=== PATIENT | male | born 1970 | race Two or more races ===

== ENCOUNTER 2022-04-25 10:05 | Inpatient (IN) | payer MEDICAID, OTHER ==
[~2022-04-25] VITALS: Ht 180.3 cm; Wt 107.5 kg
[2022-04-25] MEDS ORDERED: SODIUM CHLORIDE 0.9% 500 ML IV ONE (10:45)
[2022-04-25 11:47] LABS: Basophils # (auto) 0.1 10 ^3/uL (0-0.2); Basophils % (auto) 0.7 % (0.0-2.0); Eosinophils # (auto) 0.1 10 ^3/uL (0-0.8); Eosinophils % (auto) 1.3 % (0.0-7.0); Hematocrit 43.4 % (41.0-53.0); Hemoglobin 14.2 g/dL (13.5-17.5); Lymphocytes # (auto) 1.4 10 ^3/uL (0.4-5.4); Lymphocytes % (auto) 13.3 % (10.0-50.0); Mean Corpuscular Hemoglobin 30.6 pg (28.0-32.0); Mean Corpuscular Hgb Conc. 32.7 g/dL (32.0-36.0); Mean Corpuscular Volume 93.7 fL (80.0-100.0); Monocytes % (auto) 9.6 % (0.0-12.0); Neutrophils # (auto) 7.9 10 ^3/uL (1.6-8.6); Neutrophils % (auto) 75.1 % (37.0-80.0); Nucleated Red Blood Cells % 0.1 %; Red Blood Cells 4.64 10^6/uL (4.5-5.90); Red Cell Distribution Width 14.6 % (11.8-14.3); White Blood Cell 10.5 10^3/uL (4.4-10.8)
[2022-04-25 12:06] LABS: INR 1.05 (0.9-1.15); Partial Thromboplastin Time 27.6 sec (23.6-33.0)
[2022-04-25 12:11] LABS: Potassium 3.9 mmol/L (3.5-5.1)
[2022-04-25 12:15] LABS: Albumin 2.8 g/dL (3.4-5.0); BUN/Creatinine Ratio 12.4; Calcium 8.1 mg/dL (8.5-10.1)
[2022-04-25 12:22] LABS: Urine Bacteria NONE SEEN /hpf (None Seen); Urine Blood Negative /uL (Negative); Urine Budding Yeast MODERATE /hpf (None Seen); Urine Specific Gravity 1.034 (1.001-1.035); Urine WBC 14 /hpf (0 - 3)
[2022-04-25 12:42] LABS: Bilirubin, Total 0.4 mg/dL (0.2-1.0); Total Protein 7.4 g/dL (6.4-8.2)
[2022-04-25] MEDS ORDERED: CLINDAMYCIN 600MG IV 50 ML IV ONE (13:45)
[2022-04-25] MEDS ORDERED: ONDANSETRON HCL 4 MG/2 ML VIAL IV PRN (16:00)
[2022-04-25] MEDS ORDERED: SODIUM CHLORIDE 0.9% 1,000 ML IV ONE (16:00)
[2022-04-25] MEDS ORDERED: cefTRIAXone 1GM/50ML D5W 50 ML IV ONE (16:00)
[2022-04-25] MEDS ORDERED: INSUINJ37 SC (16:12)
[2022-04-25] MEDS ORDERED: DEXTROSE (50%) 50ML SYRG IV PRN (16:15)
[2022-04-25] MEDS ORDERED: hydrALAZINE HCL 20 MG/ML VL IV PRN (16:15)
[2022-04-25 16:36] LABS: Cholesterol 95 mg/dL (< 200); HDL Cholesterol 37 mg/dL (40-59); LDL Cholesterol 53 mg/dL (< 100); Triglycerides 107 mg/dL (< 150)
[2022-04-25] MEDS: ACCU-CHEK COMFORT CURVE STRIP VI SCH ×2 (18:23→22:18)
[2022-04-25] MEDS: InsuLIN REG 1unit/0.01ml Soln (100units/ml) SC SCH ×2 (18:24→22:18)
[2022-04-25 18:43] VITALS: BP 171/113
[2022-04-25 19:04] VITALS: BP 160/98
[2022-04-25 20:08] VITALS: BP 130/68
[2022-04-25 22:06] VITALS: BP 141/87
[2022-04-25] MEDS: CLINDAMYCIN 600MG IV 50 ML IV SCH (22:54)
[2022-04-26] VITALS (9 sets, daily range): BP systolic 113–149; BP diastolic 59–83
[2022-04-26] MEDS: CLINDAMYCIN 600MG IV 50 ML IV SCH ×3 (06:20→22:45)
[2022-04-26] MEDS: ACCU-CHEK COMFORT CURVE STRIP VI SCH ×4 (07:23→22:53)
[2022-04-26] MEDS: InsuLIN REG 1unit/0.01ml Soln (100units/ml) SC SCH ×4 (07:26→23:12)
[2022-04-26] MEDS ORDERED: MONT-8 PO (08:24)
[2022-04-26] MEDS ORDERED: DEXT4CHW PO (08:24)
[2022-04-26] MEDS ORDERED: LOSA-39 PO (08:24)
[2022-04-26] MEDS ORDERED: ATOR20TA50 PO (08:24)
[2022-04-26] MEDS ORDERED: ASPI-325 PO (08:24)
[2022-04-26] MEDS ORDERED: DULO1CAP6 PO (08:24)
[2022-04-26] MEDS ORDERED: OMEP20TA PO (08:24)
[2022-04-26] MEDS ORDERED: PREG-110 PO (08:24)
[2022-04-26 08:36] LABS: Basophils # (auto) 0.1 10 ^3/uL (0-0.2); Basophils % (auto) 0.7 % (0.0-2.0); Eosinophils # (auto) 0.1 10 ^3/uL (0-0.8); Eosinophils % (auto) 0.8 % (0.0-7.0); Hematocrit 38.4 % (41.0-53.0); Hemoglobin 12.8 g/dL (13.5-17.5); Lymphocytes # (auto) 1.5 10 ^3/uL (0.4-5.4); Lymphocytes % (auto) 12.5 % (10.0-50.0); Mean Corpuscular Hemoglobin 30.7 pg (28.0-32.0); Mean Corpuscular Hgb Conc. 33.2 g/dL (32.0-36.0); Mean Corpuscular Volume 92.4 fL (80.0-100.0); Monocytes # (auto) 0.9 10 ^3/uL (0-1.3); Monocytes % (auto) 7.4 % (0.0-12.0); Neutrophils # (auto) 9.5 10 ^3/uL (1.6-8.6); Neutrophils % (auto) 78.6 % (37.0-80.0); Red Blood Cells 4.15 10^6/uL (4.5-5.90); Red Cell Distribution Width 14.2 % (11.8-14.3)
[2022-04-26 08:54] LABS: Albumin 2.2 g/dL (3.4-5.0); Calcium 7.5 mg/dL (8.5-10.1); Potassium 3.3 mmol/L (3.5-5.1)
[2022-04-26 08:57] LABS: BUN/Creatinine Ratio 14.1; Bilirubin, Total 0.3 mg/dL (0.2-1.0); Total Protein 6.6 g/dL (6.4-8.2)
[2022-04-26] MEDS: ENOXAPARIN SOD 40 MG/0.4 ML SYRINGE SC SCH (09:23)
[2022-04-26] MEDS: cefTRIAXone 1GM/50ML D5W 50 ML IV SCH (09:24)
[2022-04-26] MEDS: MORPHINE SULFATE INJ 2 MG/ml SYRG IV PRN ×2 (13:35→20:05)
[2022-04-26] MEDS ORDERED: POTASSIUM CHL 20 Meq TABLET PO ONE (14:15)
[2022-04-27 05:00] VITALS: BP 140/72
[2022-04-27] MEDS: CLINDAMYCIN 600MG IV 50 ML IV SCH ×3 (06:02→21:31)
[2022-04-27] MEDS: ACCU-CHEK COMFORT CURVE STRIP VI SCH ×4 (06:02→21:34)
[2022-04-27] MEDS: InsuLIN REG 1unit/0.01ml Soln (100units/ml) SC SCH ×4 (06:04→21:49)
[2022-04-27] MEDS: MORPHINE SULFATE INJ 2 MG/ml SYRG IV PRN ×3 (07:50→22:51)
[2022-04-27 08:27] VITALS: BP 140/75
[2022-04-27 08:29] VITALS: BP 139/76
[2022-04-27] MEDS: cefTRIAXone 1GM/50ML D5W 50 ML IV SCH (08:53)
[2022-04-27] MEDS: ENOXAPARIN SOD 40 MG/0.4 ML SYRINGE SC SCH (08:53)
[2022-04-27 09:31] LABS: Basophils # (auto) 0.1 10 ^3/uL (0-0.2); Basophils % (auto) 1.1 % (0.0-2.0); Eosinophils # (auto) 0.2 10 ^3/uL (0-0.8); Eosinophils % (auto) 1.7 % (0.0-7.0); Hematocrit 40.5 % (41.0-53.0); Hemoglobin 13.2 g/dL (13.5-17.5); Lymphocytes # (auto) 1.6 10 ^3/uL (0.4-5.4); Lymphocytes % (auto) 15.9 % (10.0-50.0); Mean Corpuscular Hemoglobin 30.4 pg (28.0-32.0); Mean Corpuscular Hgb Conc. 32.5 g/dL (32.0-36.0); Mean Corpuscular Volume 93.6 fL (80.0-100.0); Monocytes # (auto) 0.9 10 ^3/uL (0-1.3); Monocytes % (auto) 8.5 % (0.0-12.0); Neutrophils # (auto) 7.4 10 ^3/uL (1.6-8.6); Neutrophils % (auto) 72.8 % (37.0-80.0); Red Blood Cells 4.32 10^6/uL (4.5-5.90); Red Cell Distribution Width 14.4 % (11.8-14.3); White Blood Cell 10.2 10^3/uL (4.4-10.8)
[2022-04-27 10:07] LABS: Potassium 4.2 mmol/L (3.5-5.1)
[2022-04-27 13:03] VITALS: BP 120/59
[2022-04-27 17:00] VITALS: BP 138/72
[2022-04-27 21:42] VITALS: BP 141/82
[2022-04-28 04:30] VITALS: BP 140/88
[2022-04-28] MEDS: CLINDAMYCIN 600MG IV 50 ML IV SCH (05:57)
[2022-04-28] MEDS: InsuLIN REG 1unit/0.01ml Soln (100units/ml) SC SCH ×4 (06:19→22:01)
[2022-04-28] MEDS: ACCU-CHEK COMFORT CURVE STRIP VI SCH ×4 (06:20→22:02)
[2022-04-28 09:00] VITALS: BP 152/100
[2022-04-28] MEDS: CEFTRIAXONE SODIUM 2 GM in D5W 5% 50 ML IV SCH (10:17)
[2022-04-28] MEDS: ENOXAPARIN SOD 40 MG/0.4 ML SYRINGE SC SCH (10:17)
[2022-04-28] MEDS: MORPHINE SULFATE INJ 2 MG/ml SYRG IV PRN ×2 (10:18→23:10)
[2022-04-28 13:00] VITALS: BP 151/95
[2022-04-28] MEDS ORDERED: LIDOCAINE 1% (LOCAL ANESTH.) PF 5ml SDV ID ONE (15:00)
[2022-04-28 17:04] VITALS: BP 144/70
[2022-04-28 20:30] VITALS: BP 144/70
[2022-04-28 22:00] VITALS: BP 130/60
[2022-04-28] MEDS: DAKINS HALF STR 0.25% (NaHypochlorite) 473 ML TOPICAL SOL TOP SCH (22:02)
[2022-04-28] MEDS: SODIUM CHLOR 0.9% PF (SALINE LOCK) 10ML VIAL/SYR IV SCH (22:02)
[2022-04-29] MEDS: MORPHINE SULFATE INJ 2 MG/ml SYRG IV PRN (04:19)
[2022-04-29] MEDS: ACCU-CHEK COMFORT CURVE STRIP VI SCH ×3 (06:16→17:38)
[2022-04-29] MEDS: InsuLIN REG 1unit/0.01ml Soln (100units/ml) SC SCH ×3 (06:17→17:39)
[2022-04-29 08:30] VITALS: BP 136/79
[2022-04-29] MEDS: CEFTRIAXONE SODIUM 2 GM in D5W 5% 50 ML IV SCH (09:50)
[2022-04-29] MEDS: ENOXAPARIN SOD 40 MG/0.4 ML SYRINGE SC SCH (09:50)
[2022-04-29] MEDS: SODIUM CHLOR 0.9% PF (SALINE LOCK) 10ML VIAL/SYR IV SCH (09:50)
[2022-04-29] MEDS: DAKINS HALF STR 0.25% (NaHypochlorite) 473 ML TOPICAL SOL TOP SCH (09:51)
[2022-04-29 12:24] VITALS: BP 151/90
[2022-04-29 16:44] VITALS: BP 141/93
== END 2022-04-29 19:12 | disposition home health service (06) | DRG 344 ==
LOC: ER 10:05 → OVERFLOW 16:05 → WEST WING 04-26 04:00
PROVIDERS: ADMIT Registered Nurse; ATTEND Family Medicine
PROC: 5A09357 Assistance with Respiratory Ventilation, Less than 24 Consecutive Hours, Continuous Positive Airway Pressure (ICD-10-PCS; 2022-04-25)
PROC: 5A09357 Assistance with Respiratory Ventilation, Less than 24 Consecutive Hours, Continuous Positive Airway Pressure (ICD-10-PCS; 2022-04-27)
PROC: 02HV33Z Insertion of Infusion Device into Superior Vena Cava, Percutaneous Approach (ICD-10-PCS; principal; 2022-04-28)
PROC: 5A09357 Assistance with Respiratory Ventilation, Less than 24 Consecutive Hours, Continuous Positive Airway Pressure (ICD-10-PCS; 2022-04-28)
DX: E11.69 Type 2 diabetes mellitus with other specified complication (principal); M86.8X7 Other osteomyelitis, ankle and foot; J96.01 Acute respiratory failure with hypoxia; E11.621 Type 2 diabetes mellitus with foot ulcer; E88.09 Other disorders of plasma-protein metabolism, not elsewhere classified; L03.90 Cellulitis, unspecified; E11.22 Type 2 diabetes mellitus with diabetic chronic kidney disease; L97.519 Non-pressure chronic ulcer of other part of right foot with unspecified severity; B95.1 Streptococcus, group B, as the cause of diseases classified elsewhere; E11.40 Type 2 diabetes mellitus with diabetic neuropathy, unspecified; Z20.822 Contact with and (suspected) exposure to COVID-19; E11.65 Type 2 diabetes mellitus with hyperglycemia; E66.01 Morbid (severe) obesity due to excess calories; N39.0 Urinary tract infection, site not specified; R80.9 Proteinuria, unspecified; N18.2 Chronic kidney disease, stage 2 (mild); E78.5 Hyperlipidemia, unspecified; G47.33 Obstructive sleep apnea (adult) (pediatric); J98.11 Atelectasis; E87.6 Hypokalemia; I12.9 Hypertensive chronic kidney disease with stage 1 through stage 4 chronic kidney disease, or unspecified chronic kidney disease; Z83.3 Family history of diabetes mellitus; Z68.41 Body mass index [BMI] 40.0-44.9, adult; Z79.4 Long term (current) use of insulin; B95.61 Methicillin susceptible Staphylococcus aureus infection as the cause of diseases classified elsewhere
CPT/HCPCS: 36415; 36569; 71045; 71046; 73700; 80048; 80053; 80061; 81001; 82962; 83036; 85025; 85610; 85652; 85730; 87040; 87077; 87081; 87186; 87205; 93005; 93926; 94660; 96361; 96365; G0378; J0696; J1815; J3490; J7060

== ENCOUNTER → 2023-07-11 | Outpatient (CLI) | payer MEDICAID ==
[~2023-07-11] VITALS: Ht 180.3 cm; Wt 121.1 kg
[~2023-07-11] MED LIST: ADENOSINE 102 MG in GIVE UN-DILUTED 0 ML IV ONE; ADENOSINE 90 MG/30 ML INJ IV ONE; ASPI-325 PO; ATOR20TA50 PO; DEXT4CHW PO; DULO1CAP6 PO; INSUINJ37 SC; LOSA100T58 PO; MONT-8 PO; OMEP20TA PO; PREG-110 PO
== END | disposition home or self-care (01) ==
LOC: Rad HDHVI 08:37
PROVIDERS: ATTEND Internal Medicine Cardiovascular Disease
DX: U07.1 COVID-19 (principal); I11.0 Hypertensive heart disease with heart failure; I50.33 Acute on chronic diastolic (congestive) heart failure; E78.5 Hyperlipidemia, unspecified; I40.0 Infective myocarditis; E11.21 Type 2 diabetes mellitus with diabetic nephropathy; R07.89 Other chest pain; R42 Dizziness and giddiness; E11.9 Type 2 diabetes mellitus without complications; Z79.82 Long term (current) use of aspirin; Z79.84 Long term (current) use of oral hypoglycemic drugs; Z79.899 Other long term (current) drug therapy
CPT/HCPCS: 78452; 93005; 96374; 96375; A9500; J0153

== ENCOUNTER → 2023-07-27 | Outpatient (CLI) | payer MEDICAID ==
[~2023-07-27] MED LIST changes: -ADENOSINE 102 MG in GIVE UN-DILUTED 0 ML IV ONE; -ADENOSINE 90 MG/30 ML INJ IV ONE; +ALBUTEROL SULF 2.5 MG/0.5ML(0.5%) NEB SOLN ONE
== END | disposition home or self-care (01) ==
LOC: RT 08:46
PROVIDERS: ATTEND Internal Medicine Pulmonary Disease
DX: U09.9 Post COVID-19 condition, unspecified (principal); R06.09 Other forms of dyspnea
CPT/HCPCS: 94060; 94727; 94729

== ENCOUNTER → 2023-08-29 | Outpatient (CLI) | payer MEDICAID ==
[~2023-08-29] MED LIST changes: -ALBUTEROL SULF 2.5 MG/0.5ML(0.5%) NEB SOLN ONE; +CARV6.25 PO; +DAPA1TAB4 PO; +DULA1INJ SC; +METF-370 PO
[2023-08-29 13:17] VITALS: BP 121/83; PULSE 80; RESP 18; O2SAT 92
[2023-08-29 13:43] VITALS: BP 120/77; PULSE 81; RESP 18; O2SAT 92
== END | disposition home or self-care (01) ==
LOC: CHF HDHVI 13:10
PROVIDERS: ATTEND Internal Medicine Cardiovascular Disease
DX: Z01.818 Encounter for other preprocedural examination (principal); R94.31 Abnormal electrocardiogram [ECG] [EKG]; I50.43 Acute on chronic combined systolic (congestive) and diastolic (congestive) heart failure; I51.7 Cardiomegaly; R06.02 Shortness of breath
CPT/HCPCS: 93005; G0463

== ENCOUNTER 2023-09-01 07:31 | Day surgery (SDC) | payer MEDICAID ==
[2023-08-29 15:05] LABS: Basophils # (auto) 0.1 10 ^3/uL (0-0.2); Eosinophils # (auto) 0.5 10 ^3/uL (0-0.8); Eosinophils % (auto) 3.6 % (0.0-7.0); Hematocrit 47.1 % (41.0-53.0); Hemoglobin 15.7 g/dL (13.5-17.5); Lymphocytes # (auto) 2.4 10 ^3/uL (0.4-5.4); Lymphocytes % (auto) 17.7 % (10.0-50.0); Mean Corpuscular Hemoglobin 31.3 pg (28.0-32.0); Mean Corpuscular Hgb Conc. 33.2 g/dL (32.0-36.0); Mean Corpuscular Volume 94.2 fL (80.0-100.0); Monocytes # (auto) 1.3 10 ^3/uL (0-1.3); Monocytes % (auto) 9.3 % (0.0-12.0); Neutrophils # (auto) 9.3 10 ^3/uL (1.6-8.6); Neutrophils % (auto) 68.4 % (37.0-80.0); Nucleated Red Blood Cells % 0.1 %; Red Cell Distribution Width 14.7 % (11.8-14.3); White Blood Cell 13.6 10^3/uL (4.4-10.8)
[2023-08-29 15:20] LABS: INR 1.05 (0.9-1.15); Partial Thromboplastin Time 27.6 SEC (24.5-34.5)
[2023-08-29 15:57] LABS: Anion Gap 7 (5-15); Carbon Dioxide 29 mmol/L (20-30); Chloride 104 mmol/L (98-107); Potassium 5.3 mmol/L (3.5-5.1); Sodium 140 mmol/L (136-145)
[2023-08-29 16:03] LABS: BUN/Creatinine Ratio 12.3 (10.0-20.0); Blood Urea Nitrogen 17 mg/dL (9-23); Glucose 141 mg/dL (74-106)
[~2023-09-01] VITALS: Ht 180.3 cm; Wt 128.4 kg
[~2023-09-01 07:31] MED LIST changes: -LOSA100T58 PO
[2023-09-01] MEDS ORDERED: LIDOCAINE 2%HCL (LOCAL ANESTH.) INJ 20ML MDV ONE (10:11)
[2023-09-01] MEDS ORDERED: ANGIOMAX 250 MG VIAL IV ONE (10:11)
[2023-09-01] MEDS ORDERED: fentaNYL CITRATE 100 MCG/2 ML VL ONE (10:11)
[2023-09-01] MEDS ORDERED: IOHEXOL 350 MG/ML 100ML IJ ONE ×2 (10:11→11:51)
[2023-09-01] MEDS ORDERED: SODIUM CHL 0.9% 0 ML ONE (10:11)
[2023-09-01] MEDS ORDERED: MIDAZOLAM HCL 2MG/2ML 2ml VIAL (1mg/ml) ONE (10:11)
[2023-09-01] MEDS ORDERED: HEPARIN SODIUM (PORCINE) 5000 UNITS/ML 1ML VIAL ONE (11:01)
[2023-09-01] MEDS ORDERED: VERAPAMIL 2.5MG/ML INJ 2ML VIAL IV ONE (11:02)
[2023-09-01] MEDS ORDERED: cloNIDine HCL 0.1 MG TAB PO ONE (13:45)
[2023-09-01] MEDS ORDERED: cloNIDine HCL 0.1 MG TAB ONE (13:49)
== END 2023-09-01 14:28 | disposition home or self-care (01) ==
LOC: CATH 07:31
PROVIDERS: ATTEND Internal Medicine Cardiovascular Disease
DX: R00.0 Tachycardia, unspecified (principal); E66.01 Morbid (severe) obesity due to excess calories; E65 Localized adiposity; J44.9 Chronic obstructive pulmonary disease, unspecified; F32.9 Major depressive disorder, single episode, unspecified; I10 Essential (primary) hypertension; E78.5 Hyperlipidemia, unspecified; E11.40 Type 2 diabetes mellitus with diabetic neuropathy, unspecified; E11.21 Type 2 diabetes mellitus with diabetic nephropathy; K21.9 Gastro-esophageal reflux disease without esophagitis; Z79.899 Other long term (current) drug therapy; Z79.84 Long term (current) use of oral hypoglycemic drugs; R60.0 Localized edema
CPT/HCPCS: 36415; 80048; 82962; 85025; 85610; 85730; 93458; C1725; C1769; C1887; C1894; J1644; J2250; J3010; Q9967; 99152

== ENCOUNTER 2023-11-21 12:18 | Emergency (ER) | payer MEDICAID ==
[~2023-11-21] VITALS: Ht 180.3 cm; Wt 125.0 kg
[2023-11-21 13:06] VITALS: BP 114/93; PULSE 97; RESP 18; TEMP 98; O2SAT 96
[2023-11-21] MEDS ORDERED: TETANUS-DIPTH-ACEL PERTUSSIS 0.5ML SYR Tdap IM ONE (14:15)
[2023-11-21] MEDS ORDERED: AUG875T PO (14:35)
== END 2023-11-21 14:47 | disposition home or self-care (01) ==
LOC: ER 12:18
DX: S61.411A Laceration without foreign body of right hand, initial encounter (principal); E11.9 Type 2 diabetes mellitus without complications; E78.5 Hyperlipidemia, unspecified; I10 Essential (primary) hypertension; W54.0XXA Bitten by dog, initial encounter; Y93.89 Activity, other specified; Y92.89 Other specified places as the place of occurrence of the external cause; Y99.8 Other external cause status
CPT/HCPCS: 12002; 90471; 90715